=== PATIENT | female | born 1995 | race African-American/Black ===

== ENCOUNTER 2020-01-26 12:36 | Emergency (ER) | payer OTHER, SELFPAY ==
--- NOTE | ~2020-01-26 | XR_ITS ---
XR foot RT min 3V 01/26/2020 12:56 INDICATION: Right foot pain after trauma PROCEDURE: 4 views right foot COMPARISON: Right ankle series dated 08/13/2016 FINDINGS: Fracture, dislocation or subluxation is not identified. Lisfranc joint intact. The soft tis sues appear within normal limits. No foreign bodies are identified. IMPRESSION: 1: NO ACUTE BONE OR JOINT ABNORMALITY IDENTIFIED. Reviewed, dictated and finalized at location B.
[2020-01-26 12:46] VITALS: BP 120/84; PULSE 94; RESP 16; TEMP 36.6; O2SAT 100
--- NOTE | 2020-01-26 12:54 | ED.LOWEXIN ---
HPI - Extremity Injury (Lower) General Chief Complaint: Extremity Injury, Lower Stated Complaint: injured r foot History of Present Illness HPI Narrative: This is a 24-year-old -[place] female that presented to urgent care today complaining of right foot pain. According to patient she was at work on Friday and a pallet was dropped onto her feet. She now she started experiencing pain to the phalanges. She did take Tylenol at home, use ice and elevate the extremity with no relief. Patient notes that she places pressure on that right foot she experienced pain she also has pain to the lateral side of the right foot. He noted that she did have some swelling fourth and fifth toe. The patient denies SOB, CP, palpitation, extremity numbness, lightheadedness, dizziness, constipation, diarrhea, chills, or fever. Patient did have full range of motion of her right foot and toes with sensation with movement of the fourth and fifth toe there was pain. MD complaint: foot injury Type of Injury: blunt Place: work Related Data Allergies Allergy/AdvReac Type Severity Reaction Status Date / Time cephalexin Allergy Intermediate Verified 04/23/11 09:07 CEPHALEXIN MONOHYDRATE Allergy Unknown caused Uncoded 10/28/18 17:52 anemia seafood Allergy Unknown Uncoded 08/13/16 11:41 SHELLFISH Allergy Unknown Uncoded 10/28/18 17:52 Review of Systems Review of Systems: Narrative: CONSTITUTIONAL: Denies fever, chills, sweats. EYES: Denies visual changes, redness, discharge. ENT: Denies rhinorrhea, congestion, sore throat, otalgia. CARDIOVASCULAR: Denies chest pain, palpitations, edema. RESPIRATORY: Denies dyspnea, wheezing, cough GASTROINTESTINAL: Denies abdominal pain, nausea, vomiting, diarrhea. GENITOURINARY: Denies dysuria, hematuria, abnormal discharge SKIN: Denies rash or itching. MUSCULOSKELETAL: Pain to the fourth and fifth toe with pain to her lateral side of her right foot NEUROLOGIC: Denies numbness, or focal weakness. PSYCHIATRIC: Denies anxiety or depression. PMFSH Family History Family History (Updated 01/06/14 @ 07:13 by DOCTOR UNKNOWN) Father Asthma Social History Social History Smoking status: Never smoker Alcohol intake: never Exam Narrative: Exam Narrative: GENERAL: This is a well-nourished, well-developed patient, in no apparent distress. HEAD: normocephalic, atraumatic. EYES: PERRL. Sclera clear/white. Vision is grossly intact. EARS: External ears normal, auditory canals clear and without drainage, TMs normal without perforation. Hearing grossly intact. NOSE: External nose normal with no obvious nasal discharge, nares without redness, no rhinorrhea. THROAT: Mucous membranes moist, posterior pharynx clear. NECK: Neck supple, non-tender without lymphadenopathy, masses or thyromegaly. CARDIOVASCULAR: Regular rate and rhythm without murmurs, gallops, or rubs. RESPIRATORY: Clear to auscultation. Breath sounds equal bilaterally. No wheezes, rales, or rhonchi. GASTROINTESTINAL: Abdomen soft, non-tender, nondistended. Bowel sounds are active. No hepato-splenomegaly, or palpable masses. No guarding. SKIN: warm, intact with no suspicious lesions or rash, good texture and turgor. NEURO: awake, alert, and oriented to person, place and time. There were no obvious focal neurologic abnormalities. Steady gait EXTREMITIES: Full range of motion to the right foot. Pain with the movement of her fourth and fifth toe. Pulses and sensation present BACK: Nontender without deformity or crepitance. No flank tenderness. Const: General: no acute distress Course Vital Signs Vital signs: Vital Signs Temperature 97.9 F 01/26/20 12:46 Pulse Rate 94 01/26/20 12:46 Respiratory Rate 01/26/20 12:46 Blood Pressure 120/84 01/26/20 12:46 Pulse Oximetry 100 01/26/20 12:46 Temperature 97.9 F 01/26/20 12:46 Pulse Rate 94 01/26/20 12:46 Respiratory Rate 16 01/26/20 12:46 Blood Pressure 120/84 01/26/20
== END 2020-01-26 13:18 | disposition home or self-care (01) ==
PROVIDERS: Emergency Provider Nurse Practitioner; PCP Family Medicine
DX: S93.601A Unspecified sprain of right foot, initial encounter (principal); W20.8XXA Other cause of strike by thrown, projected or falling object, initial encounter
CPT/HCPCS: 73630; 99213; G0463

== ENCOUNTER 2020-08-22 09:28 | Emergency (ER) | payer OTHER, SELFPAY ==
--- NOTE | ~2020-08-22 | US_ITS ---
EXAMINATION: US OB <=14 wk fetus w TV DATE: 08/22/2020 11:09 INDICATION: Intermittent vaginal bleeding. First trimester . TECHNIQUE: Real-time transabdominal and transvaginal pelvic ultrasound was performed. COMPARISON: None. FINDINGS: TRANSABDOMINAL ULTRASOUND: The uterus measures 7.3 x 5.4 x 6.7 cm. TRANSVAGINAL ULTRASOUND: There is an intrauterine gestational sac. A yolk sac is identified. The fet al crown rump length measures 4 mm, which correlates with an estimated gestational age of 6 weeks and 1 day(s) (+/-) 4 day(s). heart motion is identified measuring 112 beats per minute (bpm) by M- mode Doppler. The right ovary measures 1.4 x 4.1 x 1.5 cm. The left ovary measures 2.6 x 2.6 x 2.8 cm . There is no free fluid in the pelvis. IMPRESSION: 1. Single living intrauterine gestation with estimated date of delivery of 04/16/2021. Reviewed, dictated and finalized at location A.
[2020-08-22 09:35] VITALS: BP 125/77; PULSE 90; RESP 16; TEMP 37; O2SAT 100
--- NOTE | 2020-08-22 09:55 | ED.FEMALEGU ---
HPI - Female Genitourinary General Chief complaint: Vaginal Bleeding Stated complaint: 6 weeks preg-bleeding Time Seen by Provider: 08/22/20 09:37 Source: patient Mode of arrival: ambulatory Limitations: no limitations History of Present Illness HPI Narrative: This is a 25-year-old G1, P0, about 6 weeks by LMP that presents to the emergency department for vaginal bleeding. Reports this has been ongoing for the last week and a half. Reports bright red blood. She has her first OB appointment in September. Her OB is Dr. Alethea Boucher. Does report she was feeling some pressure in the pelvis yesterday. Reports she was seen at another emergency department before this started and was diagnosed with a UTI. She is currently taking Keflex for that. Denies fever, vomiting, or dysuria. Related Data Home Medications Medication Instructions Recorded Confirmed cephalexin 08/22/20 Allergies Allergy/AdvReac Type Severity Reaction Status Date / Time seafood Allergy Unknown Hives Uncoded 08/22/20 09:50 SHELLFISH Allergy Unknown Hives Uncoded 08/22/20 09:50 Review of Systems Review of Systems: Narrative: CONSTITUTIONAL: Denies fever GASTROINTESTINAL: Reports pelvic pain. Denies nausea, vomiting GENITOURINARY: Denies dysuria SKIN: Denies rash All systems reviewed & are unremarkable except as noted in HPI and below PMFSH Family History Family History (Updated 01/06/14 @ 07:13 by DOCTOR UNKNOWN) Father Asthma Social History Social History (Updated 08/22/20 @ 09:58 by Ting Thibodeaux PA-C) Smoking status: Former smoker Alcohol intake: former Exam Narrative: Exam Narrative: GENERAL: Well-appearing, well-nourished, and in no acute distress. HEAD: Normocephalic, atraumatic. EYES: EOMI. CHEST: Clear to auscultation. No respiratory distress. No wheezes rales or rhonchi HEART: Regular rate and rhythm. No murmur heard. Normal peripheral pulses. ABDOMEN: Soft, nontender, nondistended, normal active bowel sounds. EXTREMITIES: Normal range of motion. No edema. SKIN: Warm, dry, no rash. NEURO: No focal deficits. Alert and oriented x3. PSYCH: Normal mood and affect PELVIC: Small blood clot coming out of the cervix, otherwise small amount of blood in the vaginal vault Course Consultations Consultation #1: Spoke with Dr. Richard about patient and work-up. Would like patient to follow-up in clinic in the next week Date: 08/22/20 Time: 12:03 Vital Signs Vital signs: Vital Signs Temperature 98.6 F 08/22/20 09:35 Pulse Rate 90 08/22/20 09:35 Respiratory Rate 16 08/22/20 09:35 Blood Pressure 125/77 08/22/20 09:35 Pulse Oximetry 100 08/22/20 09:35 Temperature 98.6 F 08/22/20 09:35 Pulse Rate 80 08/22/20 10:17 Respiratory Rate 16 08/22/20 09:35 Blood Pressure 107/70 08/22/20 10:17 Pulse Oximetry 100 08/22/20 09:35 MDM - Female Genitourinary MDM Narrative Medical decision making narrative: Patient presents the emergency department for vaginal bleeding, about 6 weeks by LMP. Her vitals are stable. Hemoglobin is 14.2. Patient currently on Keflex, being treated for UTI. Urine today with trace leuk esterase, otherwise no white blood cells or bacteria. Did show trace ketones, ordered IV hydration. Patient refused this. Her quantitative beta-hCG is 49,911. She is a positive. Obstetrics ultrasound shows a single living intrauterine gestation with estimated date of delivery 04-16-21. She does have small amount of blood and a blood clot on exam. Spoke with patient about case findings. Spoke with Dr. Richard about patient and work-up. Would like patient to follow-up in clinic in the next week. Patient is stable and felt appropriate for further outpatient evaluation. She was given warnings to return to the ER Lab Data Attestation: I reviewed the patient's lab results. Result diagrams: 08/22/20 10:04 08/22/20 10:04 Labs: Lab Results 08/22/20 08/22/20 08/22/20 Range/Un
[2020-08-22 10:14] LABS: Basophils Absolute Auto 0.1 K/mm3 (0.0-0.1); Basophils Percent Auto 0.7 % (0.2-1.2); Eosinophils Absolute Auto 0.3 K/mm3 (0-0.3); Eosinophils Percent Auto 3.7 % (0-4.4); Hematocrit 43.2 % (37.0-47.0); Hemoglobin 14.2 g/dL (12.0-15.0); Immature Granulocyte Absolute 0.02 K/mm3 (0.00-0.031); Immature Granulocyte Percent A 0.2 % (0-0.5); Lymphocytes Absolute Auto 2.38 K/mm3 (0.9-3.2); Mean Corpuscular HGB Conc 32.9 g/dl (32-36); Mean Corpuscular Hemoglobin 27.2 pg (26-34); Mean Corpuscular Volume 82.8 fl (80-100); Mean Platelet Volume 10.5 fl (7.4-10.4); Monocytes Absolute Auto 0.7 K/mm3 (0.1-0.6); Monocytes Percent Auto 8.6 % (2.6-8.5); Neutrophils Percent Auto 58.8 % (45.5-73.1); Platelet Count Result 230 k/mm3 (150-375); Red Blood Count 5.22 M/mm3 (4.2-5.4); Red Cell Distribution Width 14.9 % (11.5-14.5); White Blood Count 8.5 K/mm3 (4.5-10.0)
[2020-08-22 10:15] VITALS: BP 110/65; PULSE 66
[2020-08-22 10:15] LABS: Bilirubin Urine Negative (Negative); Blood Urine 2+ (Negative); Glucose Urine UA Negative (Negative); Ketones Urine Trace mg/dL (Negative); Leukocyte Esterase Ur Trace LEU/UL (Negative); Nitrate Urine Negative (Negative); Protein Urine 1+ mg/dL (Negative); Specific Grav Ur 1.025 (1.001-1.035); Urobilinogen Urine 0.2 mg/dL (<2.0)
[2020-08-22 10:16] VITALS: BP 110/74; PULSE 80
[2020-08-22 10:17] VITALS: BP 107/70; PULSE 80
[2020-08-22 10:26] LABS: Add Urine Microscopic? YES; Appearance Urine Sl Cloudy (Clear); Color Urine Dark Yellow (Yellow)
[2020-08-22 10:41] LABS: Anion Gap 5 mmol/L (8-16); Blood Urea Nitrogen 8 mg/dL (7-17); Calcium 9.1 mg/dL (8.4-10.2); Carbon Dioxide 28 mmol/L (22-30); Chloride 103 mmol/L (98-107); Estimated Glomerular Filt Rate > 60; Glucose 90 mg/dL (65-105); Potassium 3.9 mmol/L (3.4-5.0); Sodium 136 mmol/L (137-145)
[2020-08-22 11:22] LABS: RBC Urine 0-2 /hpf (0-2); Squamous Epithelial Cell Urine Rare /hpf (Few); WBC Urine 0-3 /hpf
[2020-08-22 12:36] VITALS: BP 107/60; PULSE 73; RESP 14; O2SAT 100
== END 2020-08-22 12:36 | disposition home or self-care (01) ==
PROVIDERS: Physician Assistant; Emergency Provider Emergency Medicine; PCP Family Medicine
DX: O20.0 Threatened abortion (principal); Z3A.01 Less than 8 weeks gestation of pregnancy
CPT/HCPCS: 36415; 76801; 76817; 80048; 81001; 81025; 84702; 85025; 85461; 86880; 86902; 99284

== ENCOUNTER 2020-10-30 21:20 | Inpatient (IN) | payer MEDICAID, SELFPAY ==
[2020-10-30 21:22] VITALS: BP 127/68; PULSE 102; RESP 16; TEMP 36.3; O2SAT 100
[2020-10-30 21:49] LABS: Basophils Absolute Auto 0.1 K/mm3 (0.0-0.1); Basophils Percent Auto 0.5 % (0.2-1.2); Eosinophils Absolute Auto 0.2 K/mm3 (0-0.3); Eosinophils Percent Auto 1.4 % (0-4.4); Hematocrit 41.7 % (37.0-47.0); Hemoglobin 13.6 g/dL (12.0-15.0); Immature Granulocyte Absolute 0.04 K/mm3 (0.00-0.031); Immature Granulocyte Percent A 0.3 % (0-0.5); Lymphocytes Absolute Auto 2.39 K/mm3 (0.9-3.2); Lymphocytes Percent Auto 16.6 % (18.3-44.2); Mean Corpuscular HGB Conc 32.6 g/dl (32-36); Mean Corpuscular Hemoglobin 26.9 pg (26-34); Mean Corpuscular Volume 82.4 fl (80-100); Mean Platelet Volume 11.1 fl (7.4-10.4); Monocytes Absolute Auto 0.9 K/mm3 (0.1-0.6); Monocytes Percent Auto 6.1 % (2.6-8.5); Neutrophils Absolute Auto 10.8 K/mm3 (1.3-6.7); Neutrophils Percent Auto 75.1 % (45.5-73.1); Platelet Count Result 234 k/mm3 (150-375); Red Blood Count 5.06 M/mm3 (4.2-5.4); Red Cell Distribution Width 14.8 % (11.5-14.5); White Blood Count 14.4 K/mm3 (4.5-10.0)
--- NOTE | 2020-10-30 21:57 | PC.NURSE ---
FHT 155 strong.
--- NOTE | 2020-10-30 22:19 | ED.FEMALEGU ---
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 Patient states that she is 16 weeks . Patient also admits to mild abdominal cramping but now resolved after taking Tylenol. Patient states that she has had care and her last ultrasound was 3 weeks ago and it was normal . Denies any chest pain, shortness of breath, nausea, vomiting, diarrhea, fever or chills. Patient denies any urinary symptoms. Related Data Home Medications Medication Instructions Recorded Confirmed cephalexin 08/22/20 Allergies Allergy/AdvReac Type Severity Reaction Status Date / Time seafood Allergy Unknown Hives Uncoded 08/22/20 09:50 SHELLFISH Allergy Unknown Hives Uncoded 08/22/20 09:50 Review of Systems Review of Systems: All systems reviewed & are unremarkable except as noted in HPI and below Constitutional: Constitutional: Denies body ache(s), Denies chills, Denies excessive sweating, Denies fatigue, Denies fever(s), Denies headache(s), Denies lethargy, Denies malaise, Denies weakness and Denies weight loss Eyes: Eyes: Denies blurry vision, Denies change in vision and Denies loss of vision ENT: Denies dizziness, Denies ear discharge, Denies headache(s), Denies lip swelling, Denies epistaxis, Denies nasal congestion, Denies neck pain, Denies throat swelling and Denies tongue swelling Cardiovascular: Cardiovascular: Denies chest pain, Denies chest pain at rest, Denies chest pain with activity, Denies diaphoresis, Denies rapid heart rate, Denies edema, Denies irregular heart rhythm, Denies lightheadedness, Denies palpitations, Denies dyspnea and Denies dyspnea on exertion Respiratory: Respiratory: Denies chest congestion, Denies cough, Denies hemoptysis, Denies dyspnea and Denies dyspnea on exertion Gastrointestinal: Gastrointestinal: Denies abdominal pain, Denies melena, Denies hematochezia, Denies diarrhea, Denies nausea, Denies vomiting and Denies hematemesis Musculoskeletal: Musculoskeletal: Denies abnormal gait, Denies deformity, Denies joint swelling, Denies limited range of motion, Denies neck pain and Denies numbness Neurologic: Denies Abnormal speech present, Denies abnormal gait, Denies confusion, Denies dizziness, Denies headache(s), Denies focal weakness, Denies loss of vision, Denies numbness, Denies Other visual disturbances, Denies Sensory deficit (Neuro) and Denies weakness Psychiatric: Psychiatric: Denies confusion, Denies depression, Denies auditory hallucinations, Denies homicidal ideation and Denies suicidal ideation Endocrine: Endocrine: Denies cold intolerance, Denies excessive sweating, Denies fatigue, Denies heat intolerance and Denies palpitations Hematologic/Lymphatic: Hematologic/Lymphatic: Denies easy bleeding and Denies easy bruising Allergic/Immunologic: Allergic/Immunologic: Denies lip swelling, Denies throat swelling and Denies tongue swelling PMFSH Family History Family History Father Asthma Social History Social History Smoking status: Former smoker Alcohol intake: former Comments Past medical history: None Family history: Noncontributory Social history: Non-smoker no EtOH or drug use Exam Const: General: cooperative, healthy appearing, comfortable, no acute distress, well developed, alert and awake; No confusion Orientation/consciousness: oriented to person, oriented to place, oriented to time, patient oriented x3 and No confusion Limitations: no limitations HENMT: Head: normal to inspection, normocephalic and atraum
[2020-10-30] MEDS: SODIUM CHLORIDE 0.9% IV 1,000 ML 999 ML IV CONT (22:31)
[2020-10-30 23:02] LABS: Add Urine Microscopic? YES; Appearance Urine Cloudy (Clear); Bilirubin Urine Negative (Negative); Blood Urine 3+ (Negative); Color Urine Red (Yellow); Glucose Urine UA Negative (Negative); Ketones Urine 1+ mg/dL (Negative); Leukocyte Esterase Ur 3+ LEU/UL (Negative); Mucus Urine Rare /lpf; Nitrate Urine Negative (Negative); Protein Urine 2+ mg/dL (Negative); RBC Urine >75 /hpf (0-2); Specific Grav Ur 1.017 (1.001-1.035); Squamous Epithelial Cell Urine Moderate /hpf (Few); Urobilinogen Urine Negative mg/dL (<2.0); WBC Urine >75 /hpf
[2020-10-31] VITALS (23 sets, daily range): BP systolic 107–135; BP diastolic 43–79; PULSE 79–109; RESP 16–26; TEMP 36.8–36.9; O2SAT 96–100; BMI 21.2
--- NOTE | 2020-10-31 00:50 | PC.NURSE ---
pt ambulated to restroom, pt then stated she was cramping and expelled a clot of blood in toilet. now increased cramping and pain aware
[2020-10-31] MEDS: SODIUM CHLORIDE 0.9% IV 1,000 ML 999 ML IV CONT (01:13)
--- NOTE | 2020-10-31 01:16 | LDADM ---
This patient, Ira Frias, was admitted to Labor/Delivery/Recovery 110 on 10/31/20 at 01:16. Plans for labor, pain management and were discussed with patient. Patient/family oriented to hospital policies and general routines including ID bracelet, bed and alarms, visiting hours, pain management, procedures, bathroom and other care routines, personal items, smoking policy, room service/diet and guest tray routines, security routines, and visiting hours. Patient/Family are encouraged to report perceived risks to care and to ask questions if they do not understand what they are told or what they should do. See OBIX for further documentation.
[2020-10-31] MEDS: fentaNYL CITRATE INJ (*CRX) 100 MCG/2 ML VIAL ×2 (01:55→02:30)
[2020-10-31] MEDS: LACTATED RINGERS 1,000 ML 125 ML IV CONT (01:57)
[2020-10-31] MEDS: OXYTOCIN 30 UNITS/NS 500 ML 30 UNITS/500 ML BAG 999 UNITS (03:02)
--- NOTE | 2020-10-31 03:18 | WPDOBADMIT ---
Obstetrics - Admit Note Admission Note: record reviewed. Additions to the history and/or subsequent changes in the physical findings follow. 25 y/o G1 at 16 weeks with cramping and bleeding. Was seen in ED and seemed stable with +FHR. Then had another large gush of blood. ED physician phoned me and she was brought to L&D for observation. Cramping increased and FHR unable to be auscultated. Cervix dilated fully. AVSS ABD soft, nontender EXT nontender Cervix completely dilated with bulging bag of water at introitus. A: SAB at 16 weeks. P: Delivery imminent.
--- NOTE | 2020-10-31 03:25 | PM.OBPRVD ---
OB - Delivery Note Procedure Delivery date: 10/31/20 Procedure: of 16 week SAB Induction method: none Delivery monitor: none Route of delivery: Laceration Description: None Specimen: Yes (Stillborn 16 week fetus, placenta) Quantitative Blood Loss (ml): 400 Anesthesia type: None Disposition: PACU Complications: None Narrative: 25 y/o G1 at 16 weeks gestation who presented to the ED after developing cramping and bleeding. FHR initially auscultated. She then had another gush of blood and an increase in pain. She was brought to L&D where FHR were not able to be auscultated. She received IV Fentanyl for pain control. Her cervix dilated completely. She delivered the stillborn fetus en caul. The placenta delivered spontaneously thereafter. The perineum was free of laceration. Bedside ultrasound exam by me showed an empty uterus. weight 110 g (3.8oz). [place] Date of : 10/31/20 Time of : 02:53 Weeks of gestation at delivery: 16 Infant gender: Male Weight (ounces): 4 presentation: vertex Placenta delivery description: Spontaneous and Normal Configuration score one minute: 0
--- NOTE | 2020-10-31 03:33 | PM.OBDSVD ---
DS: Admitting Diagnosis Admitting Diagnosis Admitting Diagnosis: IUP at 16 weeks SAB DS: Discharge Diagnosis Discharge Diagnosis (1) Spontaneous in second trimester: Code(s): O03.9 - Complete or unspecified spontaneous without complication Status: Acute OB - DS: Summary OB Procedures : None OB Procedures Intrapartum: Spontaneous Vag Delivery OB Procedures: : None Time Spent with Patient Time attestation: Total time spent providing and/or coordinating discharge services: DS: Data Data Completed and Pending Labs on day of discharge: Labs from last 24 hours 10/31/20 10/30/20 10/30/20 02:00 22:39 21:43 WBC RBC Hgb Hct MCV MCH MCHC RDW Plt Count MPV Immature Gran % (Auto) Neut % (Auto) Lymph % (Auto) [place] % (Auto) Eos % (Auto) Baso % (Auto) Lymph # (Auto) [place] # (Auto) Eos # (Auto) Baso # (Auto) Abs Immat Gran (auto) Absolute Neuts (auto) Absolute Nucleated RBC Nucleated RBC % Beta HCG, Quant 34737.00 Urine Color Red H Urine Appearance Cloudy H Urine pH 6.0 Ur Specific [employer] 1.017 Urine Protein 2+ H Urine Glucose (UA) Negative Urine Ketones 1+ H Ur Blood (Man) 3+ H Urine Nitrate Negative Urine Bilirubin Negative Urine Urobilinogen Negative Leukocyte Esterase Rfl 3+ H Urine RBC >75 H Urine WBC >75 H Ur Squamous Epith Cells Moderate H Urine Mucus Rare RPR Pending 10/30/20 21:43 WBC 14.4 H RBC 5.06 Hgb 13.6 Hct 41.7 MCV 82.4 MCH 26.9 MCHC 32.6 RDW 14.8 H Plt Count 234 MPV 11.1 H Immature Gran % (Auto) 0.3 Neut % (Auto) 75.1 H Lymph % (Auto) 16.6 L [place] % (Auto) 6.1 Eos % (Auto) 1.4 Baso % (Auto) 0.5 Lymph # (Auto) 2.39 [place] # (Auto) 0.9 H Eos # (Auto) 0.2 Baso # (Auto) 0.1 Abs Immat Gran (auto) 0.04 H Absolute Neuts (auto) 10.8 H Absolute Nucleated RBC 0.0 Nucleated RBC % 0.0 Beta HCG, Quant Urine Color Urine Appearance Urine pH Ur Specific [employer] Urine Protein Urine Glucose (UA) Urine Ketones Ur Blood (Man) Urine Nitrate Urine Bilirubin Urine Urobilinogen Leukocyte Esterase Rfl Urine RBC Urine WBC Ur Squamous Epith Cells Urine Mucus RPR Discharge Plan Discharge Attending physician on discharge: Jose J Mosley Discharging Clinician: Jose J Mosley Patient Disposition: Home, Self-Care Activity: pelvic rest Diet: regular Discharge Instructions: Call or return if temperature above 100.4? F, increased abdominal pain, increased vaginal bleeding or any new problems. Stand Alone Forms: General Discharge Information Follow-up/Referrals: Rylan Allen MD [Physician] - 2 Weeks Discharge Medications: New ibuprofen 600 mg tablet 600 mg PO Q6H PRN (Reason: cramps) Qty: 30 RF: 0 No Action PNV cmb#95-ferrous fumarate-FA [] 28 mg iron- 800 mcg Tablet 1 tablet PO DAILY RF: 0 Date of admission: 10/31/20 01:16 Primary Care Provider: Aniyah,Annie Lee Admitting Provider: Jose J Mosley Attending physician on admission: Jose J Mosley Condition: Stable
[2020-10-31 07:59] LABS: Amphetamine Screen Urine Negative (Negative); Barbiturate Screen Urine Negative (Negative); Benzodiazepines Screen Urine Negative (Negative); Cannabinoid Screen Urine Positive (Negative); Cocaine Screen Urine Negative (Negative); Methadone Screen Urine Negative (Negative); Opiate Screen Urine Negative (Negative); Phencyclidine Screen Urine Negative (Negative)
[2020-10-31] MEDS: IBUPROFEN 600 MG TABLET PO (08:23)
[2020-10-31 10:54] LABS: Hematocrit 30.3 % (37.0-47.0); Hemoglobin 9.9 g/dL (12.0-15.0)
[2020-10-31 11:05] LABS: Glucose 94 mg/dL (65-105)
[2020-10-31 11:46] LABS: HIV 1/2 Ab P24 Ag Result Negative (Negative)
[2020-10-31 11:47] LABS: Free T4 Free Thyroxine 0.92 ng/mL (0.78-2.19)
[2020-11-01 12:44] LABS: Rapid Plasma Reagin Non-Reactive (NonReactive)
[2020-11-02 21:38] LABS: Anti Cardio Antibody IgM <2.0 MPL-U/mL (<20.0); Anti Cardiolipin Antibody IgA <2.0 APL-U/mL (<20.0); Anti Cardiolipin Antibody IgG <2.0 GPL-U/mL (<20.0)
[2020-11-03 12:20] LABS: CMV IgM Antibody <30.00 AU/mL (<30.00)
[2020-11-03 15:45] LABS: CMV IgG Antibody <0.60 U/mL (<0.60)
[2020-11-04 03:39] LABS: Lupus dRVVT 1:1 Mix Interpreta Not Indicated; Lupus dRVVT Screen 42 sec (<=45); PTT-LA Screen 36 sec (<=40)
== END 2020-10-31 11:40 | disposition home or self-care (01) | DRG 560 ==
LOC: ANHED 23:55 → ANHLDR 10-31 01:15
PROVIDERS: Physician Assistant; Admitting Provider Obstetrics & Gynecology; Emergency Provider Emergency Medicine; PCP Family Medicine; Visit Provider Obstetrics & Gynecology
DX: O03.6 Delayed or excessive hemorrhage following complete or unspecified spontaneous abortion (principal); Z3A.16 16 weeks gestation of pregnancy; Z37.1 Single stillbirth
CPT/HCPCS: 36415; 80307; 81001; 82947; 84439; 84443; 84702; 85014; 85018; 85025; 85460; 85461; 85613; 85730; 86146; 86147; 86592; 86644; 86645; 86703; 86850; 86880; 86900; 86901; 86902; 86922; 87086; 88300; 88305; 88307; 96360; 99285; A9270; G0432; J2590; J3010; J7030; J7120

== ENCOUNTER 2021-02-20 12:12 | Outpatient (CLI) | payer BC, SELFPAY ==
[2021-02-20 13:49] LABS: Hematocrit 41.4 % (37.0-47.0); Hemoglobin 13.4 g/dL (12.0-15.0); Mean Corpuscular HGB Conc 32.4 g/dl (32-36); Mean Corpuscular Hemoglobin 26.6 pg (26-34); Mean Corpuscular Volume 82.1 fl (80-100); Mean Platelet Volume 11.5 fl (7.4-10.4); Platelet Count Result 238 k/mm3 (150-375); Red Blood Count 5.04 M/mm3 (4.2-5.4); Red Cell Distribution Width 15.5 % (11.5-14.5); White Blood Count 8.5 K/mm3 (4.5-10.0)
[2021-02-20 14:52] LABS: HIV 1/2 Ab P24 Ag Result Negative (Negative)
[2021-02-20 20:26] LABS: HIV 1/2 Ab P24 Ag 0
[2021-02-20 20:36] LABS: Hepatitis B Surface Antigen Negative (Negative); Rubella IgG Antibody 36.5 IU/ML
[2021-02-21 07:28] LABS: Rapid Plasma Reagin Non-Reactive (NonReactive)
[2021-02-22 14:16] LABS: CMV IgG Antibody <0.60 U/mL (<0.60)
== END 2021-02-20 12:13 | disposition home or self-care (01) ==
LOC: ANHLAB 12:15
PROVIDERS: PCP Family Medicine; Visit Provider Obstetrics & Gynecology
DX: N92.5 Other specified irregular menstruation (principal); Z11.4 Encounter for screening for human immunodeficiency virus [HIV]
CPT/HCPCS: 36415; 84702; 85027; 85660; 86592; 86644; 86703; 86747; 86762; 86787; 86850; 86880; 86900; 86901; 86902; 87086; 87088; 87340; G0432

== ENCOUNTER 2021-08-07 23:18 | Inpatient (IN) | payer BC, SELFPAY ==
[2021-08-08] VITALS (12 sets, daily range): BP systolic 98–139; BP diastolic 54–74; PULSE 80–96; RESP 16–18; TEMP 36.5–36.8; O2SAT 99–100; BMI 23.1
[2021-08-08] MEDS: MAGNESIUM SULF 4 GM/WATER100ML 4 GM/100 ML BAG IVPB (00:23)
[2021-08-08] MEDS: BETAMETHASONE SOD PHOS/ACETATE 30 MG/5 ML VIAL 12 MG IM (00:43)
[2021-08-08] MEDS: AMPICILLIN 2 GM/NS 100 ML 2 GM/100 ML BAG IVPB (00:44)
[2021-08-08] MEDS: MAGNESIUM SULF 20GM/WATER500ML 500 ML 50 MG IV CONT (01:00)
[2021-08-08] MEDS: OXYTOCIN 30 UNITS/NS 500 ML 30 UNITS/500 ML BAG 999 UNITS IV CONT (01:38)
[2021-08-08] MEDS: fentaNYL CITRATE INJ (*CRX) 100 MCG/2 ML VIAL 50 MCG IV PUSH (01:43)
--- NOTE | 2021-08-08 01:52 | PM.IMHP ---
H&P: HPI History of Present Illness Date/Time: 08/08/21 01:52 6-year-old 2 para 0 010 at 31-32 weeks presents with complaints of leaking and cramping. She was doing well until [id number] prior to presentation she noted she was wet Freddy and have some cramping and spotting which is increased since that time. Prior was a 16 week delivery thought to be secondary incompetent cervix. This a cerclage was placed 18 weeks when cervical shortening was noted on scan. Had done well from that point until now other than complaints prior to admission. Chief Complaint: cramping and leaking Review of Systems Review of Systems: All systems reviewed & are unremarkable except as noted in HPI and below PMFSH Family History Family History Father Asthma Social History Social History Smoking status: Never smoker Alcohol intake: former Spiritual care concerns: No Meds Home Medications and Allergies Home Medications Medication Instructions Recorded Confirmed Type PNV cmb#95-ferrous fumarate-FA 1 tablet PO DAILY 10/31/20 07/27/21 History [] famotidine 10 mg tablet 10 mg PO BID #90 tablet 06/25/21 06/25/21 Rx escitalopram oxalate 5 mg tablet 5 mg PO DAILY #30 tablet 07/27/21 07/27/21 Rx progesterone micronized 100 mg 1 insert VAGINAL QHS ea 07/27/21 07/27/21 History vaginal insert Allergies Allergy/AdvReac Type Severity Reaction Status Date / Time seafood Allergy Unknown Hives Uncoded 08/22/20 09:50 SHELLFISH Allergy Unknown Hives Uncoded 08/22/20 09:50 Vital Signs Vital Signs - 24 hr 08/08/21 00:12 08/08/21 00:16 08/08/21 00:30 Pulse Rate 82 88 85 Blood Pressure 107/54 L 98/60 L 107/67 Exam Const: General: cooperative and healthy appearing Resp: Auscultation: clear to auscultation bilaterally Cardio: Rate: regular rate Rhythm: regular rhythm GI: Auscultation: normal bowel sounds : External Female Exam: normal external appearance Bimanual exam- vagina & uterus: enlarged ( Fundal height 30cm heart tones 130) OB/external & speculum: Active bleeding present Manual OB Exam: dilated 5 cm, effaced fully, station -2 and other ( cerclage palpated) Amniotic Fluid: clear Assessment and Plan Assessment and plan (1) 31 weeks gestation of : Code(s): Z3A.31 - 31 weeks gestation of Status: Acute (2) Premature rupture of membranes (PROM) affecting second : Code(s): O42.90 - Premature rupture of membranes, unspecified as to length of time between rupture and onset of labor, unspecified weeks of gestation Status: Acute (3) labor in third trimester with term delivery: Code(s): O60.23X0 - Term delivery with labor, third trimester, not applicable or unspecified Status: Acute (4) Incompetent cervix: Code(s): N88.3 - Incompetence of cervix uteri Status: Acute Additional Plan 1. Magnesium sulfate neuro prophylaxis 2. Ampicillin and erythromycin antibiotic prophylaxis 3. Steroids to be given ( though unlikely from much effect as well likely deliver soon) 4. Inform Pediatrics patient presence. and likely delivery and near future
--- NOTE | 2021-08-08 01:59 | WPDHPUPDATE1 ---
History and Physical Update Update Date/Time: 08/08/21 01:59 History and Physical has been reviewed, including an updated exam of the patient. There are NO changes in the patient's condition. Risks, benefits, and alternatives have been discussed and questions answered. Patient agrees to proceed with procedure.
--- NOTE | 2021-08-08 01:59 | PM.OBPRVD ---
OB - Delivery Note Procedure Events: Premature Rupture of Membranes and Other ( incompetent cervix with cerclage placement) Induction method: None Delivery monitor: External FHT Route of delivery: Episiotomy description: None Laceration Description: None Specimen: Yes Quantitative Blood Loss (ml): 200 Anesthesia type: None Disposition: Floor Narrative: patient prepped and draped in usual manner for this procedure. Maternal expulsive efforts delivered vertex with a nuchal cord which was noted and readily reduced. Rest of baby was delivered without difficulty cord was clamped and passed off to Dr. Lira and pediatric team. Placenta then delivered spontaneously. Cervix vagina vulva were inspected no lacerations or tears cerclage was noted and was removed in its entirety without difficulty. Uterus was well contracted minimal bleeding at this point procedure was considered terminated. The baby was in the nursery being evaluated the immediate postoperative condition of mother was excellent. Weight and Apgars on the baby will be in the pediatric chart and are not available at this time. Baby Weeks of gestation at delivery: 32 gender: Female presentation: vertex Placenta delivery description: Spontaneous Cord Vessel Description: 3 Vessels [facility] Delivery Billing Delivery Delivery: Delivery Charge
[2021-08-08 02:25] LABS: Basophils Absolute Auto 0.1 K/mm3 (0.0-0.1); Basophils Percent Auto 0.4 % (0.2-1.2); Eosinophils Absolute Auto 0.1 K/mm3 (0-0.3); Eosinophils Percent Auto 0.5 % (0-4.4); Hematocrit 39.2 % (37.0-47.0); Hemoglobin 12.6 g/dL (12.0-15.0); Immature Granulocyte Absolute 0.06 K/mm3 (0.00-0.031); Immature Granulocyte Percent A 0.5 % (0-0.5); Lymphocytes Absolute Auto 1.68 K/mm3 (0.9-3.2); Lymphocytes Percent Auto 13.2 % (18.3-44.2); Mean Corpuscular HGB Conc 32.1 g/dl (32-36); Mean Corpuscular Hemoglobin 27.5 pg (26-34); Mean Corpuscular Volume 85.4 fl (80-100); Mean Platelet Volume 11.6 fl (7.4-10.4); Monocytes Absolute Auto 0.8 K/mm3 (0.1-0.6); Monocytes Percent Auto 6.5 % (2.6-8.5); Neutrophils Absolute Auto 10.1 K/mm3 (1.3-6.7); Neutrophils Percent Auto 78.9 % (45.5-73.1); Platelet Count Result 201 k/mm3 (150-375); Red Blood Count 4.59 M/mm3 (4.2-5.4); Red Cell Distribution Width 14.5 % (11.5-14.5); White Blood Count 12.8 K/mm3 (4.5-10.0)
--- NOTE | 2021-08-08 02:27 | LDADM ---
This patient, Ira Frias, was admitted to Labor/Delivery/Recovery 105 on 08/08/21 at 00:41. Plans for labor, pain management and were discussed with patient. Patient/family oriented to hospital policies and general routines including ID bracelet, bed and alarms, visiting hours, pain management, procedures, bathroom and other care routines, personal items, smoking policy, room service/diet and guest tray routines, security routines, and visiting hours. Patient/Family are encouraged to report perceived risks to care and to ask questions if they do not understand what they are told or what they should do. See OBIX for further documentation.
[2021-08-08] MEDS: OXYTOCIN 30 UNITS/NS 500 ML 30 UNITS/500 ML BAG 125 UNITS IV CONT (02:30)
[2021-08-08 02:35] LABS: Alanine Aminotransferase 10 U/L (4-35); Albumin Level 4.1 g/dL (3.5-5.1); Alkaline Phosphatase 122 U/L (38-126); Anion Gap 9 mmol/L (8-16); Aspartate Amino Transferase 21 U/L (14-36); Bilirubin,Total 0.3 mg/dL (0.2-1.3); Blood Urea Nitrogen 7 mg/dL (7-17); Calcium 8.4 mg/dL (8.4-10.2); Carbon Dioxide 22 mmol/L (22-30); Chloride 100 mmol/L (98-107); Estimated Glomerular Filt Rate > 60; Glucose 96 mg/dL (65-110); Potassium 3.2 mmol/L (3.4-5.0); Sodium 131 mmol/L (137-145)
[2021-08-08 03:16] LABS: HIV 1/2 Ab P24 Ag Result Negative (Negative)
[2021-08-08 03:47] LABS: HIV 1/2 Ab P24 Ag 0.08
[2021-08-08 03:53] LABS: Amphetamine Screen Urine Negative (Negative); Barbiturate Screen Urine Negative (Negative); Benzodiazepines Screen Urine Negative (Negative); Cannabinoid Screen Urine Negative (Negative); Cocaine Screen Urine Negative (Negative); Methadone Screen Urine Negative (Negative); Opiate Screen Urine Negative (Negative); Phencyclidine Screen Urine Negative (Negative)
--- NOTE | 2021-08-08 04:14 | OBPPTRN ---
Patient transferred to post room #285 via wheelchair. Support person present. Oriented to unit, room, information board, rooming in, admission packet and security measures. Patient verbalizes understanding.
[2021-08-08] MEDS: WITCH HAZEL 40 PADS 1 PAD TOPICAL (04:20)
[2021-08-08] MEDS: BENZOCAINE 20% AER SPR (*SP) 56 GM CAN 1 SPRAY TOPICAL (04:20)
[2021-08-08] MEDS: ACETAMINOPHEN 325 MG TABLET 650 MG PO (04:57)
[2021-08-08 05:11] LABS: Rubella IgG Antibody 25.8 IU/ML
[2021-08-08 06:28] LABS: Rapid Plasma Reagin Non-Reactive (NonReactive)
--- NOTE | 2021-08-08 07:42 | PM.OBDSVD ---
DS: Admitting Diagnosis Discharge Date 08/08/2021 Admitting Diagnosis bleeding/leaking OB - DS: Summary OB Procedures : [place] OB Procedures Intrapartum: Spontaneous Vag Delivery OB Procedures: : None Time Spent with Patient Time attestation: Total time spent providing and/or coordinating discharge services: DS: Data Data Completed and Pending Labs on day of discharge: Labs from last 24 hours 08/08/21 08/08/21 08/08/21 03:09 02:12 02:12 WBC RBC Hgb Hct MCV MCH MCHC RDW Plt Count MPV Immature Gran % (Auto) Neut % (Auto) Lymph % (Auto) [place] % (Auto) Eos % (Auto) Baso % (Auto) Lymph # (Auto) [place] # (Auto) Eos # (Auto) Baso # (Auto) Abs Immat Gran (auto) Absolute Neuts (auto) Absolute Nucleated RBC Nucleated RBC % Sodium 131 L Potassium 3.2 L Chloride 100 Carbon Dioxide 22 Anion Gap 9 BUN 7 Creatinine 0.60 L Estim Creat Clear Calc Not Reportable Estimated GFR > 60 Glucose 96 Calcium 8.4 Total Bilirubin 0.3 AST 21 ALT 10 Alkaline Phosphatase 122 Total Protein 8.0 Albumin 4.1 Urine Opiates Screen Negative Urine Methadone Screen Negative Ur Barbiturates Screen Negative Ur Phencyclidine Scrn Negative Ur Amphetamine Screen Negative U Benzodiazepines Scrn Negative Urine Cocaine Screen Negative U Cannabinoids Screen Negative RPR HIV 1&2 Ab/P24 Ag 4thGn Rubella IgG Antibody 25.8 Blood Type Antibody Screen Antibody Identification Antigen Identification SETH, IgG Interpret SETH, Poly Interpret SETH, Complement Interp Enhanced Crossmatch 08/08/21 08/08/21 08/08/21 02:12 02:12 02:11 WBC 12.8 H RBC 4.59 Hgb 12.6 Hct 39.2 MCV 85.4 MCH 27.5 MCHC 32.1 RDW 14.5 Plt Count 201 MPV 11.6 H Immature Gran % (Auto) 0.5 Neut % (Auto) 78.9 H Lymph % (Auto) 13.2 L [place] % (Auto) 6.5 Eos % (Auto) 0.5 Baso % (Auto) 0.4 Lymph # (Auto) 1.68 [place] # (Auto) 0.8 H Eos # (Auto) 0.1 Baso # (Auto) 0.1 Abs Immat Gran (auto) 0.06 H Absolute Neuts (auto) 10.1 H Absolute Nucleated RBC 0.0 Nucleated RBC % 0.0 Sodium Potassium Chloride Carbon Dioxide Anion Gap BUN Creatinine Estim Creat Clear Calc Estimated GFR Glucose Calcium Total Bilirubin AST ALT Alkaline Phosphatase Total Protein Albumin Urine Opiates Screen Urine Methadone Screen Ur Barbiturates Screen Ur Phencyclidine Scrn Ur Amphetamine Screen U Benzodiazepines Scrn Urine Cocaine Screen U Cannabinoids Screen RPR Non-reactive HIV 1&2 Ab/P24 Ag 4thGn Negative Rubella IgG Antibody Blood Type Antibody Screen Antibody Identification Antigen Identification SETH, IgG Interpret SETH, Poly Interpret SETH, Complement Interp Enhanced Crossmatch 08/08/21 02:11 WBC RBC Hgb Hct MCV MCH MCHC RDW Plt Count MPV Immature Gran % (Auto) Neut % (Auto) Lymph % (Auto) [place] % (Auto) Eos % (Auto) Baso % (Auto) Lymph # (Auto) [place] # (Auto) Eos # (Auto) Baso # (Auto) Abs Immat Gran (auto) Absolute Neuts (auto) Absolute Nucleated RBC Nucleated RBC % Sodium Potassium Chloride Carbon Dioxide Anion Gap BUN Creatinine Estim Creat Clear Calc Estimated GFR Glucose Calcium Total Bilirubin AST ALT Alkaline Phosphatase Total Protein Albumin Urine Opiates Screen Urine Methadone Screen Ur Barbiturates Screen Ur Phencyclidine Scrn Ur Amphetamine Screen U Benzodiazepines Scrn Urine Cocaine Screen U Cannabinoids Screen RPR HIV 1&2 Ab/P24 Ag 4thGn Rubella IgG Antibody Blood Type A Positive Antibody Screen Positive Antibody Identification Anti-Marcy Antigen Identification Cancelled SETH, IgG Interpret Negative SETH, Poly I
--- NOTE | 2021-08-08 07:45 | PM.OBPNLAB ---
Pain Control Date/time seen: 08/08/21 07:45 Doing well this morning. Minimal bleed. No sig pain. Baby doing well this morning. VSS afebrile fundus NT d/c later today if continues to do well. Reviewed s/s that she should call and inform us if occur. Questions answered.
[2021-08-08] MEDS: IBUPROFEN 600 MG TABLET PO ×2 (08:24→15:08)
[2021-08-08] MEDS: ESCITALOPRAM OXALATE 5 MG TABLET PO (08:24)
--- NOTE | 2021-08-08 08:48 | PC.NURSE ---
On 08/08/21, the student, Nik Fischer, provided care and completed [facility] documentation on this patient. I have reviewed the student's documentation and agree with the findings.
--- NOTE | 2021-08-08 10:00 | PC.NURSE ---
Patient instructed on viewing the discharge video Mother & Baby Care, The First Two Weeks . Patient was given the opportunity and encouraged to ask questions. Patient verbalized understanding of information shared and has been given the mother/baby guide for home reference.
[2021-08-08] MEDS: TETANUS,DIPHTHERIA,AC PERTUSSIS ADULT (0.5 ML) BOOSTRIX IM (10:08)
[2021-08-08 14:44] LABS: Hepatitis B Surface Antigen Negative (Negative)
== END 2021-08-08 16:20 | disposition home or self-care (01) | DRG 560 ==
LOC: ANHOBPP 23:31 → ANHOB2 08-08 07:35 → ANHOBPP 08-24 14:13
PROVIDERS: Admitting Provider Obstetrics & Gynecology; PCP Family Medicine; Visit Provider Obstetrics & Gynecology
DX: O42.913 Preterm premature rupture of membranes, unspecified as to length of time between rupture and onset of labor, third trimester (principal); Z3A.31 31 weeks gestation of pregnancy; Z37.0 Single live birth; O60.23X0 Term delivery with preterm labor, third trimester, not applicable or unspecified; N88.3 Incompetence of cervix uteri; O69.81X0 Labor and delivery complicated by cord around neck, without compression, not applicable or unspecified; O62.3 Precipitate labor; Z23 Encounter for immunization
CPT/HCPCS: 36415; 80053; 80307; 84112; 85025; 86592; 86703; 86762; 86850; 86880; 86900; 86901; 86922; 87340; 90471; 90653; 90715; A9270; G0008; G0432; J0290; J0702; J2590; J3010; J3475

== ENCOUNTER 2022-03-08 11:14 | Emergency (ER) | payer BC, SELFPAY ==
[2022-03-08 11:23] VITALS: BP 110/64; PULSE 99; RESP 18; TEMP 38.3; O2SAT 100
--- NOTE | 2022-03-08 11:58 | ED.URI ---
HPI - URI/Sore Throat General Chief Complaint: Upper Respiratory Infection Stated Complaint: n/v/cp/uri Time Seen by Provider: 03/08/22 11:59 Source: patient and RN notes reviewed Mode of arrival: ambulatory Limitations: no limitations History of Present Illness HPI Narrative: 26-year-old female presents to the [facility] with complaints of nausea, congestion, sore throat, body aches for 2-3 days. Took NyQuil and ibuprofen 1 time yesterday. States that she lives with someone who tested positive for influenza A. Related Data Home Medications Medication Instructions Recorded Confirmed No Home Medications 03/08/22 03/08/22 Allergies Allergy/AdvReac Type Severity Reaction Status Date / Time cephalexin [From Keflex] Allergy Rash Verified 03/08/22 12:06 seafood Allergy Unknown Hives Uncoded 03/08/22 11:27 SHELLFISH Allergy Unknown Hives Uncoded 03/08/22 11:27 Review of Systems Review of Systems: All systems reviewed & are unremarkable except as noted in HPI and below Constitutional: Constitutional: Reports as per HPI, Reports chills, Reports fatigue and Reports fever(s) Eyes: Eyes: Reports no additional eye complaints ENT: Reports as per HPI Cardiovascular: Cardiovascular: Reports no additional cardiovascular complaints Respiratory: Respiratory: Reports no additional respiratory complaints Gastrointestinal: Gastrointestinal: Reports no additional gastrointestinal complaints Musculoskeletal: Musculoskeletal: Reports no additional musculoskeletal complaints Integumentary/Breasts: Skin/Breast: Reports system reviewed and no additional complaints, except as docu Neurologic: Reports system reviewed and no additional complaints, except as documented Psychiatric: Psychiatric: Reports no additional psychiatric complaints Allergic/Immunologic: Allergic/Immunologic: Reports no additional allergic/immunologic complaints [facility] Past Medical History Medical History Patient denies medical problems Surgical History Surgical History (Updated 03/08/22 @ 12:04 by Luh Moran APRN) No pertinent past surgical history Family History Family History Father Asthma Social History Social History Smoking status: Never smoker Second hand tobacco smoke exposure: No Alcohol intake: former Substance use: never Spiritual care concerns: No Comments At the time of my signature, I reviewed and agree with the nursing past medical, surgical, social, and family history. There is no relevant family history pertinent to the patient complaint. Exam Const: General: healthy appearing, no acute distress, alert and well nourished Nutritional Appearance: well nourished Orientation/consciousness: patient oriented x3 Limitations: no limitations HENMT: Head: normal to inspection Ears: external ears normal, TM's normal bilaterally and EAC's normal Face/Nose/Sinus: Normal external nose present and Normal nares present Mouth: Yes Normal oral and palatal mucosa present, Yes lip normal and Yes moist mucous membranes Eyes: General: appearance normal, both eyes and all related structures Pupils: Equal, round and reactive pupils present Neck: Neck: normal visual inspection, no lymphadenopathy and no meningeal signs Chest: Chest palpation & inspection: normal inspection of the chest Resp: Effort & Inspection: normal respiratory effort and no use of accessory muscles Auscultation: clear to auscultation bilaterally, no crackles, no rales, no rhonchi and no wheezes Cardio: Rate: regular rate Rhythm: regular rhythm Skin: General skin exam: normal color Rashes: no rashes Wounds: no wounds Neuro: General: patient oriented x3, moves all extremities, no meningeal signs and no focal motor deficits Cranial nerves: Yes Equal, round and reactive pupils present Speech: no
== END 2022-03-08 12:22 | disposition home or self-care (01) ==
PROVIDERS: Emergency Provider Nurse Practitioner; PCP Nurse Practitioner Family
DX: J10.1 Influenza due to other identified influenza virus with other respiratory manifestations (principal)
CPT/HCPCS: 87804; 99213; G0463

== ENCOUNTER 2022-08-19 11:59 | Emergency (ER) | payer OTHER, SELFPAY ==
--- NOTE | 2022-08-19 12:04 | ED.FEMALEGU ---
HPI - Female Genitourinary General Chief complaint: Urogenital-Female Stated complaint: UTI Time Seen by Provider: 08/19/22 12:02 Source: patient Mode of arrival: ambulatory Limitations: no limitations History of Present Illness HPI Narrative: Ms. Frias is a 27-year-old female patient presenting to the clinic today with complaints of possible urinary tract infection. She reports that she developed symptoms yesterday. Denies any fever or chills. Is having some burning with holding her urine with low urine output and frequency. Is also having some low back pain. She denies any vaginal discharge however notice some blood when she was wiping yesterday. Last menstrual period was 1 week ago. Last bowel movement was this morning and was normal for her. Last sexual intercourse was 3 weeks ago. Denies new sexual partner. She denies any vaginal discharge or odor. Related Data Allergies Allergy/AdvReac Type Severity Reaction Status Date / Time cephalexin [From Keflex] Allergy Rash Verified 08/19/22 12:01 seafood Allergy Unknown Hives Uncoded 08/19/22 12:01 SHELLFISH Allergy Unknown Hives Uncoded 08/19/22 12:01 Review of Systems Review of Systems: General: Well-developed, well nourished, in no apparent distress. Head: Normocephalic, atraumatic. Cardio: Regular rate and rhythm, s1 and s2 normal, no murmur appreciated. Resp: Clear to auscultation bilaterally, no rhonchi, rales, wheezing or rubs. Abdomen: Soft, pliable, bowel sounds present in all quadrants, mild tender to palpation over the suprapubic bladder, no organomegly, no CVAT tenderness. PMFSH Past Medical History Medical History Patient denies medical problems Surgical History Surgical History (Updated 03/08/22 @ 12:04 by Luh Moran APRN) No pertinent past surgical history Family History Family History Father Asthma Social History Social History Smoking status: Never smoker Second hand tobacco smoke exposure: No Alcohol intake: former Substance use: never Spiritual care concerns: No Comments At the time of my signature, I reviewed and agree with the nursing past medical, surgical, social, and family history. There is no relevant family history pertinent to the patient complaint. Exam Narrative: General: Well-developed, well nourished, in no apparent distress. Head: Normocephalic, atraumatic. Cardio: Regular rate and rhythm, s1 and s2 normal, no murmur appreciated. Resp: Clear to auscultation bilaterally, no rhonchi, rales, wheezing or rubs. Abdomen: Soft, pliable, bowel sounds present in all quadrants, non-tender to palpation, no organomegly, no CVAT tenderness. Course Course Emergency Course: Portions of this record may have been created with voice recognition software. Level of Care: Express Care Visit Vital Signs Vital signs: Vital signs reviewed MDM - Female Genitourinary MDM Narrative Medical decision making narrative: At the time of visit patient is resting comfortably on the exam table. UA was obtained and shows a trace of leukocytes otherwise clear. We will await for urine culture to determine if treatment is needed as patient is having vague symptoms. Urine test was negative. We will send off dirty urine for chlamydia, gonorrhea, and Trichomonas. Supportive measures were discussed with the patient she voiced understanding of discharge instructions and agrees to treatment plan. Differential Diagnosis Differential diagnosis: Likely urinary tract infection, bacterial vaginosis, trichomoniasis, vaginitis, cystitis and other (Overactive bladder, interstitial cystitis) Discharge Plan Discharge Clinical Impression: Increased urinary frequency, Low urine output Patient Disposition: Home, Self-Care Condition: Stable Ins
[2022-08-19 12:11] VITALS: BP 130/62; PULSE 75; RESP 14; TEMP 36.7; O2SAT 100
== END 2022-08-19 12:40 | disposition home or self-care (01) ==
PROVIDERS: Emergency Provider Nurse Practitioner Family; PCP Nurse Practitioner Family
DX: R35.0 Frequency of micturition (principal); R39.198 Other difficulties with micturition
CPT/HCPCS: 81003; 81025; 87086; 87147; 87181; 87186; 87491; 87591; 87661; 99213; G0463

== ENCOUNTER 2023-07-14 11:17 | Emergency (ER) | payer OTHER, SELFPAY ==
[2023-07-14 11:53] VITALS: BP 114/85; PULSE 76; RESP 20; TEMP 36.8; O2SAT 100
--- NOTE | 2023-07-14 12:08 | ED.URI ---
HPI - URI/Sore Throat General Chief Complaint: Upper Respiratory Infection Stated Complaint: sore throat Time Seen by Provider: 07/14/23 12:00 Source: patient Mode of arrival: ambulatory Limitations: no limitations History of Present Illness HPI Narrative: Ira is a 28-year-old female patient presenting to the clinic today with complaints of cough, congestion, sinus pain, and sore throat times 2 weeks. She reports she is blowing out some yellow nasal drainage and her throat pain seems to be getting worse. MD elicited complaint: sore throat and nasal congestion Related Data Allergies Allergy/AdvReac Type Severity Reaction Status Date / Time cephalexin [From Keflex] Allergy Rash Verified 11/28/22 10:45 seafood Allergy Unknown Hives Uncoded 11/28/22 10:45 SHELLFISH Allergy Unknown Hives Uncoded 11/28/22 10:45 Review of Systems Review of Systems: Pertinent positives per HPI. Patient denies any fever, chills, rash, headache, visual changes, dizziness, shortness of breath, chest pain, palpitations, nausea, vomiting, diarrhea, constipation, abdominal pain, or any urinary issues. [facility] Past Medical History Medical History Patient denies medical problems Surgical History Surgical History No pertinent past surgical history Family History Family History Father Asthma Social History Social History Smoking status: Never smoker Second hand tobacco smoke exposure: No Alcohol intake: current Alcohol use details: rarely Substance use: never Lack of Transportation: No Lack of Food: Never True Current Housing: I Have Housing Concerned About Future Housing: No Difficulty Paying Gas/Electric Bills: No Difficulty Paying for Meds: No Currently Unemployed: No Education: Trade/Vocational Certificate Difficulty w/ Childcare or Family Care: No Living arrangements: with family Occupation/Education: occupation Gender identity (if verbalized by the patient): Female Sexual Orientation (if Verbalized by the Patient): Straight or Heterosexual Spiritual care concerns: No Comments At the time of my signature, I reviewed and agree with the nursing past medical, surgical, social, and family history. There is no relevant family history pertinent to the patient complaint. Exam Narrative: General: Well-developed, well nourished, in no apparent distress Head: Normocephalic, atraumatic Eyes: Pupils equally round and reactive to light bilaterally, EOM intact, sclera and conjunctive clear, no discharge, lids normal Ears: TMs intact and clear, ear canals clear, no drainage, grossly hearing normal. Nose: Nares patent, yellow nasal discharge, moderate inflammation, maxillary sinus tenderness. Mouth: Oral pharynx red without lesions or masses, good dentition, MMM. Neck: Supple, trachea midline, no enlargement of anterior or posterior cervical nodes, no thyroid masses or goiter palpable. Cardio: Regular rate and rhythm, s1 and s2 normal, no murmur appreciated. Resp: Clear to auscultation bilaterally, no rhonchi, rales, wheezing or rubs Course Course Emergency Course: Portions of this record may have been created with voice recognition software. Level of Care: Express Care Visit Vital Signs Vital signs: Vital signs reviewed MDM - URI/Sore Throat MDM Narrative Medical decision making narrative: At the time of visit patient is resting comfortably on the exam table. Patient appears to be nontoxic. Labs: Strep test was negative in the clinic today. Plan: I suspect patient has acute bacterial sinusitis. Prescription for Augmentin and prednisone was sent to the pharmacy. Patient reports that she has had amoxicillin past without any allergy. Supportive measures were d
== END 2023-07-14 12:17 | disposition home or self-care (01) ==
PROVIDERS: Emergency Provider Nurse Practitioner Family; PCP Nurse Practitioner Family
DX: J01.90 Acute sinusitis, unspecified (principal); J02.9 Acute pharyngitis, unspecified
CPT/HCPCS: 87880; 99213; G0463

== ENCOUNTER 2023-11-08 17:53 | Emergency (ER) | payer OTHER, SELFPAY ==
[2023-11-08 18:04] VITALS: BP 115/77; PULSE 97; RESP 20; TEMP 36.5; O2SAT 100
[2023-11-08 18:44] LABS: Basophils Percent Auto 0.2 % (0.2-1.2); Eosinophils Absolute Auto 0.1 K/mm3 (0-0.3); Eosinophils Percent Auto 0.5 % (0-4.4); Hematocrit 42.6 % (37.0-47.0); Hemoglobin 13.5 g/dL (12.0-15.0); Immature Granulocyte Absolute 0.05 K/mm3 (0.00-0.031); Immature Granulocyte Percent A 0.4 % (0-0.5); Lymphocytes Percent Auto 2.8 % (18.3-44.2); Mean Corpuscular HGB Conc 31.7 g/dl (32-36); Mean Corpuscular Hemoglobin 26.9 pg (26-34); Mean Platelet Volume 12.1 fl (7.4-10.4); Monocytes Absolute Auto 0.8 K/mm3 (0.1-0.6); Monocytes Percent Auto 5.4 % (2.6-8.5); Neutrophils Absolute Auto 12.9 K/mm3 (1.3-6.7); Neutrophils Percent Auto 90.7 % (45.5-73.1); Platelet Count Result 242 k/mm3 (150-375); Red Blood Count 5.01 M/mm3 (4.2-5.4); Red Cell Distribution Width 15.6 % (11.5-14.5); White Blood Count 14.2 K/mm3 (4.5-10.0)
[2023-11-08 18:57] LABS: Alanine Aminotransferase 19 U/L (6-35); Albumin Level 4.8 g/dL (3.5-5.1); Alkaline Phosphatase 40 U/L (38-126); Anion Gap 9 mmol/L (4-12); Aspartate Amino Transferase 23 U/L (14-36); Bilirubin,Total 1.3 mg/dL (0.2-1.3); Blood Urea Nitrogen 14 mg/dL (7-17); Calcium 8.9 mg/dL (8.4-10.2); Carbon Dioxide 25 mmol/L (22-30); Chloride 106 mmol/L (98-107); Estimated CRCL calculation 92 ml/min; Estimated Glomerular Filt Rate > 60; Glucose 111 mg/dL (65-110); Lipase 63 U/L (23-300); Potassium 3.8 mmol/L (3.4-5.0); Sodium 140 mmol/L (137-145)
--- NOTE | 2023-11-08 19:00 | ED.NAVMDI ---
HPI - Nausea/Vomiting/Diarrhea General Chief complaint: Nausea/Vomiting/Diarrhea Stated complaint: N/v Time Seen by Provider: 11/08/23 18:02 Source: patient Mode of arrival: ambulatory Limitations: no limitations History of Present Illness HPI Narrative: Patient is a 28-year-old female who presents the ED with report of nausea, vomiting, diarrhea. Patient reports symptoms began this morning and have been persistent throughout the day today. She notes several of her coworkers have been sick with similar symptoms recently. She states she has been unable to keep down any food or drink. She has attempted [id number] nausea medicine, but denied improvement. Reports cramping throughout her abdomen that occurred just before a bowel movement, but denies abdominal pain currently. Denies rectal bleeding, melena, fevers, urinary complaints, cough or cold symptoms. Related Data Allergies Allergy/AdvReac Type Severity Reaction Status Date / Time cephalexin [From Keflex] Allergy Rash Verified 11/08/23 18:03 seafood Allergy Unknown Hives Uncoded 11/08/23 18:03 SHELLFISH Allergy Unknown Hives Uncoded 11/08/23 18:03 Review of Systems Review of Systems: CONSTITUTIONAL: Denies fever, chills, or sweats. ENT: Denies rhinorrhea, congestion, sore throat. CARDIOVASCULAR: Denies chest pain, palpitations, or edema. RESPIRATORY: Denies cough or dyspnea. GASTROINTESTINAL: See HPI. GENITOURINARY: Denies dysuria or hematuria. All systems reviewed & are unremarkable except as noted in HPI and below PMFSH Past Medical History Medical History Patient denies medical problems Surgical History Surgical History No pertinent past surgical history Family History Family History Father Asthma Social History Social History Smoking status: Never smoker Second hand tobacco smoke exposure: No Alcohol intake: current Alcohol use details: rarely Substance use: never Lack of Transportation: No Lack of Food: Never True Current Housing: I Have Housing Concerned About Future Housing: No Difficulty Paying Gas/Electric Bills: No Difficulty Paying for Meds: No Currently Unemployed: No Education: Trade/Vocational Certificate Difficulty w/ Childcare or Family Care: No Living arrangements: with family Occupation/Education: occupation Gender identity (if verbalized by the patient): Female Sexual Orientation (if Verbalized by the Patient): Straight or Heterosexual Spiritual care concerns: No Exam Narrative: GENERAL: Well appearing, thin, well-nourished, non-toxic, in no acute distress. HEAD: Normocephalic, atraumatic. RESPIRATORY: Airway patent, respirations nonlabored. Clear to auscultation bilaterally, no rales, rhonchi, wheezing. CARDIOVASCULAR: Regular rate and rhythm ABDOMINAL: Soft, No significant tenderness throughout abdomen, nondistended. Normoactive BS. MUSCULOSKELETAL: Moves all extremities. No gross deformities. SKIN: Warm, dry, normal color. NEURO: A&O X3. Speech clear. PSYCHIATRIC: Appropriate mood and affect. Normal interaction. Course Vital Signs Vital signs: Vital Signs Temperature 97.7 F 11/08/23 18:04 Pulse Rate 97 11/08/23 18:04 Respiratory Rate 20 11/08/23 18:04 Blood Pressure 115/77 11/08/23 18:04 Pulse Oximetry 100 11/08/23 18:04 Oxygen Delivery Room Air 11/08/23 18:04 Temperature 97.7 F 11/08/23 18:04 Pulse Rate 80 11/08/23 20:45 Respiratory Rate 19 11/08/23 20:45 Blood Pressure 123/87 11/08/23 20:45 Pulse Oximetry 97 11/08/23 20:45 Oxygen Delivery Room Air 11/08/23 18:04 MDM - Nausea/Vomiting/Diarrhea MDM Narrative Medical decision making narrative: patient presented to ED
[2023-11-08] MEDS: SODIUM CHLORIDE 0.9% IV 1,000 ML 999 ML IV CONT ×2 (19:12→19:13)
[2023-11-08 19:14] LABS: Magnesium 1.7 mg/dL (1.6-2.3)
[2023-11-08] MEDS: ONDANSETRON INJ 4 MG/2 ML VIAL IV PUSH (19:14)
[2023-11-08 19:26] LABS: Add Urine Microscopic? YES; Appearance Urine Cloudy (Clear); Bacteria Urine 4+ /hpf; Bilirubin Urine Negative (Negative); Blood Urine Trace (Negative); Color Urine Yellow (Yellow); Glucose Urine UA Negative (Negative); Ketones Urine 1+ mg/dL (Negative); Leukocyte Esterase Ur 1+ LEU/UL (Negative); Nitrate Urine Negative (Negative); Protein Urine Trace mg/dL (Negative); Specific Grav Ur 1.032 (1.001-1.035); Squamous Epithelial Cell Urine Moderate /hpf (Few); pH Urine 5.5 (5.0-9.0)
[2023-11-08 19:45] LABS: Influenza A QL RT-PCR Negative (Negative); Influenza B QL RT-PCR Negative (Negative); RSV RNA, RT-PCR Negative (Negative); SARS-CoV-2 RNA PCR Negative (Negative)
[2023-11-08 20:24] VITALS: BP 119/72; PULSE 65; RESP 12; O2SAT 100
[2023-11-08 20:45] VITALS: BP 123/87; PULSE 80; RESP 19; O2SAT 97
== END 2023-11-08 20:45 | disposition home or self-care (01) ==
PROVIDERS: Emergency Provider Physician Assistant; PCP Nurse Practitioner Family
DX: K52.9 Noninfective gastroenteritis and colitis, unspecified (principal); Z20.822 Contact with and (suspected) exposure to COVID-19
CPT/HCPCS: 36415; 80053; 81001; 83690; 83735; 85025; 87077; 87086; 87088; 87181; 87637; 96361; 96374; 99284; J2405; J7030

== ENCOUNTER 2024-02-11 11:54 | Emergency (ER) | payer SELFPAY ==
--- NOTE | 2024-02-11 11:57 | ED.URI ---
HPI - URI/Sore Throat General Chief Complaint: Upper Respiratory Infection Stated Complaint: Sinus Time Seen by Provider: 02/11/24 11:57 Source: patient Mode of arrival: ambulatory Limitations: no limitations History of Present Illness HPI Narrative: Patient is a 28-year-old female who presents with 4 days of sinus pressure, sneezing, cough and intermittent sore throat. Denies any fever, chills, nausea, vomiting, diarrhea. Has been taking [id number] Robitussin and ibuprofen with no relief. Related Data Home Medications Medication Instructions Recorded Confirmed No Home Medications 02/11/24 02/11/24 Allergies Allergy/AdvReac Type Severity Reaction Status Date / Time cephalexin [From Keflex] Allergy Rash Verified 02/11/24 12:17 seafood Allergy Unknown Hives Uncoded 02/11/24 12:17 SHELLFISH Allergy Unknown Hives Uncoded 02/11/24 12:17 Review of Systems Review of Systems: All systems reviewed & are unremarkable except as noted in HPI and below Constitutional: Constitutional: Denies body ache(s), Denies chills, Denies fatigue, Denies fever(s), Denies headache(s), Denies malaise and Denies weakness Eyes: Eyes: Denies blurry vision, Denies itchy eyes and Denies loss of vision ENT: Denies otalgia, Denies headache(s), Reports nasal congestion, Denies sinus pain, Reports sinus pressure and Reports sore throat Cardiovascular: Cardiovascular: Denies chest pain, Denies irregular heart rhythm and Denies dyspnea Respiratory: Respiratory: Reports cough and Denies dyspnea Gastrointestinal: Gastrointestinal: Denies abdominal pain, Denies diarrhea, Denies nausea and Denies vomiting Musculoskeletal: Musculoskeletal: Denies back pain, Denies myalgias and Denies arthralgias Integumentary/Breasts: Skin/Breast: Denies pruritus and Denies rash Neurologic: Denies headache(s), Denies loss of vision and Denies weakness Psychiatric: Psychiatric: Reports no additional psychiatric complaints Endocrine: Endocrine: Denies fatigue Allergic/Immunologic: Allergic/Immunologic: Denies itchy eyes PMFSH Past Medical History Medical History Patient denies medical problems Surgical History Surgical History No pertinent past surgical history Family History Family History Father Asthma Social History Social History Smoking status: Never smoker Second hand tobacco smoke exposure: No Alcohol intake: current Alcohol use details: rarely Substance use: never Lack of Transportation: No Lack of Food: Never True Current Housing: I Have Housing Concerned About Future Housing: No Difficulty Paying Gas/Electric Bills: No Difficulty Paying for Meds: No Currently Unemployed: No Education: Trade/Vocational Certificate Difficulty w/ Childcare or Family Care: No Living arrangements: with family Occupation/Education: occupation Gender identity (if verbalized by the patient): Female Sexual Orientation (if Verbalized by the Patient): Straight or Heterosexual Spiritual care concerns: No Comments At time of signature, agree with nursing past medical, surgical, social and family history. There is no relevant family history pertinent to the presenting complaint. Exam Const: General: cooperative, healthy appearing, comfortable, no acute distress and well nourished Nutritional Appearance: well nourished Orientation/consciousness: patient oriented x3 Limitations: no limitations HENMT: Head: normal to inspection, normocephalic and atraumatic Ears: hearing grossly normal bilaterally, external ears normal, TM's normal bilaterally, EAC's normal and no periauricular adenopathy Face/Nose/Sinus: Normal external nose present, Abnormal mucous membranes and turbinates present erythematous bilateral
[2024-02-11 12:02] VITALS: BP 121/74; PULSE 93; RESP 18; TEMP 37.6; O2SAT 100
[2024-02-11 13:15] LABS: EDCOVIDSCREEN Negative (Negative); EDINFLUASCREEN Negative (Negative); EDINFLUBSCREEN Negative (Negative)
== END 2024-02-11 13:10 | disposition home or self-care (01) ==
PROVIDERS: Emergency Provider Nurse Practitioner Family; PCP Family Medicine
DX: J06.9 Acute upper respiratory infection, unspecified (principal); Z20.822 Contact with and (suspected) exposure to COVID-19
CPT/HCPCS: 87426; 87804; 99213; G0463